=== PATIENT | male | born 1990 | race Caucasian/White ===

== ENCOUNTER 2020-02-01 09:35 | Outpatient (CLI) | payer BC, SELFPAY ==
[2020-02-02 13:07] LABS: SARS-CoV-2 RNA PCR Negative
== END 2020-02-01 09:36 | disposition home or self-care (01) ==
LOC: CHSLAB 09:40
PROVIDERS: PCP Internal Medicine; Visit Provider Internal Medicine
DX: Z20.828 Contact with and (suspected) exposure to other viral communicable diseases (principal)
CPT/HCPCS: 87635; C9803; U0003

== ENCOUNTER 2022-10-05 14:40 | Outpatient (CLI) | payer BC, SELFPAY ==
--- NOTE | ~2022-10-05 | XR_ITS ---
EXAM: XR_CERV2-3V_CR DATE: 10/05/2022 15:02 HISTORY: neck pain, right arm pain,DYSPHAGIA . COMPARISON: None available. FINDINGS: Craniocervical association and atlantoaxial joint are aligned. No prevertebral soft tissue swelling. Vertebral bodies are aligned. Mild reversal of the normal cervical lordosis, centered at C 4. Vertebral body heights are maintained. Moderate disc space narrowing at C3-4 with mild marginal os teophytosis. No significant facet sclerosis or hypertrophy. IMPRESSION: Mild-moderate degenerative disc disease at C3-4. Reviewed, dictated and finalized at location K.
[2022-10-05 14:55] LABS: Basophils Absolute Auto 0.04 K/mm3 (0.00-0.10); Basophils Percent Auto 0.6 % (0.0-1.0); Eosinophils Absolute Auto 0.06 K/mm3 (0.02-0.50); Eosinophils Percent Auto 0.9 % (1.0-6.0); Hematocrit 47.1 % (40.0-54.0); Hemoglobin 16.1 g/dL (14.0-18.0); Immature Granulocyte Absolute 0.01 K/mm3 (0.00-0.00); Immature Granulocyte Percent A 0.2 % (0.0-0.0); Lymphocytes Absolute Auto 1.69 K/mm3 (1.10-4.50); Lymphocytes Percent Auto 26.3 % (18.0-42.0); Mean Corpuscular HGB Conc 34.2 g/dL (32.0-36.0); Mean Corpuscular Hemoglobin 30.9 pg (27.0-31.0); Mean Corpuscular Volume 90.4 fL (78.0-102.0); Mean Platelet Volume 10.8 fl (8.7-11.0); Monocytes Absolute Auto 0.39 K/mm3 (0.10-0.90); Monocytes Percent Auto 6.1 % (2.0-11.0); Neutrophils Absolute Auto 4.2 K/mm3 (1.7-7.2); Neutrophils Percent Auto 65.9 % (50.0-70.0); Platelet Count Result 225 K/mm3 (150-420); Red Blood Count 5.21 M/mm3 (4.70-6.10); White Blood Count 6.4 K/mm3 (4.8-10.8)
[2022-10-05 15:28] LABS: Alanine Aminotransferase 33 U/L (16-63); Albumin Level 4.3 g/dL (3.4-5.0); Alkaline Phosphatase 96 U/L (46-116); Anion Gap 10 mmol/L (8-16); Aspartate Amino Transferase 16 U/L (15-37); Bilirubin,Total 0.5 mg/dL (0.00-1.00); Blood Urea Nitrogen 8 mg/dL (7-18); Calcium 9.1 mg/dL (8.5-10.1); Carbon Dioxide 29 mmol/L (21-32); Chloride 104 mmol/L (98-108); Estimated Glomerular Filt Rate > 60; Glucose 90 mg/dL (70-99); Osmolality Calculated 294 mOsm/kg (285-295); Potassium 4.5 mmol/L (3.5-5.1); Sodium 143 mmol/L (136-145); Total Protein 7.5 g/dL (6.4-8.2)
[2022-10-05 15:29] LABS: CRP < 0.5 mg/dL (0.0-0.9)
== END 2022-10-05 14:41 | disposition home or self-care (01) ==
LOC: CHSLAB 14:43
PROVIDERS: PCP Internal Medicine; Visit Provider Internal Medicine
DX: R13.10 Dysphagia, unspecified (principal); M54.2 Cervicalgia; M79.601 Pain in right arm; M50.31 Other cervical disc degeneration, high cervical region
CPT/HCPCS: 36415; 72040; 80053; 85025; 86140

== ENCOUNTER 2022-10-20 08:49 | Outpatient (CLI) | payer BC, SELFPAY ==
--- NOTE | ~2022-10-20 | XR_ITS ---
EXAMINATION: XR barium swallow DATE: 10/20/2022 10:00 INDICATION: Dysphagia, neck pain TECHNIQUE: The patient drank thick barium, gas-producing crystals, and thin barium. Fluoroscopy of th e hypopharynx and esophagus was performed. Fluoroscopy exposure time was 1.6 minutes. The DAP for thi s procedure was 11.754 Gycm2. COMPARISON: None. FINDINGS: There is a small area of anterior indentation of the cervical esophagus at the level of C5. Esophageal motility is normal. There is no hiatal hernia. There was no gastroesophageal reflux with provocative maneuvers. IMPRESSION: 1. Small area of anterior indentation of the cervical esophagus which could reflect an esophageal web . Endoscopy is recommended. Reviewed, dictated and finalized at location L. IMPRESSION: 1. Small area of anterior indentation of the cervical esophagus which could ref lect an esophageal web. Endoscopy is recommended.
== END 2022-10-20 08:50 | disposition home or self-care (01) ==
LOC: CHSIMG 08:51
PROVIDERS: PCP Internal Medicine; Visit Provider Internal Medicine
DX: R13.10 Dysphagia, unspecified (principal); M54.2 Cervicalgia; M79.601 Pain in right arm
CPT/HCPCS: 74220

== ENCOUNTER 2022-11-12 15:58 | Outpatient (RCR) | payer BC, SELFPAY ==
--- NOTE | 2022-11-13 07:37 | PTOPEVAL1 ---
Assessment and note entered by ANUPAM Fitzgerald PT Evaluation Information Assessment Status Evaluation Diagnosis R cervical radiculopathy Onset 11/03/22 Subjective Information Patient reports a history of R shoulder and arm pain for years since playing high school sports. In the last few months, the pain in his R UE has increased along with additional neck pain. 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 He notes pain and numbness down the R UE into the ring and pinky fingers that typically only occurs when throwing baseballs or positioning the neck in rotation/sidebending for some time. Patient reports neck pain as an aching/ stiff sensation that lasts throughout the day, especially with work where he primarily sits at a desk. He visited the doctor and recevied an x-ray showing cervical spine disc disease, but has not had an MRI. He has been treating the pain with stretching and going to the chiropractor but notes nothing fully resolves the pain. Reported Pain Level Pain Score 3,0: Self Report Assessment PT Clinical Summary Mr. Pantoja is a 32 y/o male who presents to skilled PT due to cervical radiculopathy. He presents with signs and symptoms indicative of a R cervical radiculopathy. He demonstrates limited cervical and R shoulder ROM, as well as impaired strength in the R UE. 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 Patient currently has 22% functional decline as assessed by the NDI. Appropriate to continue skilled therapy to address deficits in ROM, strength, posture, and function to allow for patient to improve tolerance to work activities, coaching activites, and other daily activities. Supervised by Antonio Fitzgerald DPT Plan of Care Interventions Electrical Stimulation,Hot Pack/Cold Pack,Manual Therapy,Mechanical Traction,Neuro Re-education, Patient/Caregiver Educati,Therapeutic Activities, Therapeutic Exercise PT Services Indicated Yes Treatment Frequency and 2x/week for 10 visits Duration These treatments will address the objective and functional deficits as defined above.
--- NOTE | 2022-11-13 07:38 | OPREHPOC ---
Outpatient Therapy Plan of Care This is a Multidisciplinary Plan of Care that may contain components documented by all disciplines (PT, OT, and ST.) PT Problem 1 PT Problem #1 Knowledge Deficit PT Goal 1 Goal 1. Patient to demonstrate independence with HEP to improve progress made in PT. Target Visit 5 PT Problem 2 PT Problem #2 Impaired Range of Motion PT Goal 1 Goal 1. Patient to increase R cervical lateral flexion AROM to 30 degrees or more to decrease pain with cervical movements. 2. Patient to improve R shoulder flexion and abduction AROM to 160 degrees or more each to improve patient's ability to reach objects on overhead shelf. Target Visit 10 PT Problem 3 PT Problem #3 Impaired Strength PT Goal 1 Goal 1. Patient to improve R shoulder and elbow strength to 5/5 overall to increase patient's ability to lift 20 pounds from floor to overhead shelf. Target Visit 10 PT Problem 4 PT Problem #4 Pain PT Goal 1 Goal 1. 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 2. 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 Target Visit 10 PT Problem 5 PT Problem #5 Impaired Functional Mobil PT Goal 1 Goal 1. Pt to improve NDI score to no more than 10% to improve patient's tolerance to sleeping and driving activities. Target Visit 10
--- NOTE | 2022-11-23 15:30 | PCPTNOTE ---
patient had to cancel skilled PT today due to a conflict with work. he is scheduled to return to skilled PT on 11/26/22.
--- NOTE | 2022-12-08 16:39 | OPREHPOC ---
Outpatient Therapy Plan of Care This is a Multidisciplinary Plan of Care that may contain components documented by all disciplines (PT, OT, and ST.) PT Problem 1 PT Problem #1 Knowledge Deficit PT Goal 1 Goal 1. Patient to demonstrate independence with HEP to improve progress made in PT. Target Visit 5 Progress Met PT Problem 2 PT Problem #2 Impaired Range of Motion PT Goal 1 Goal 1. Patient to increase R cervical lateral flexion AROM to 30 degrees or more to decrease pain with cervical movements. 2. Patient to improve R shoulder flexion and abduction AROM to 160 degrees or more each to improve patient's ability to reach objects on overhead shelf. Target Visit 10 Progress Not Met PT Goal 2 Progress Not Met PT Problem 3 PT Problem #3 Impaired Strength PT Goal 1 Goal 1. Patient to improve R shoulder and elbow strength to 5/5 overall to increase patient's ability to lift 20 pounds from floor to overhead shelf. Target Visit 10 Progress Not Met PT Problem 4 PT Problem #4 Pain PT Goal 1 Goal 1. 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 2. 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 Target Visit 10 Progress Not Met PT Problem 5 PT Problem #5 Impaired Functional Mobil PT Goal 1 Goal 1. Pt to improve NDI score to no more than 10% to improve patient's tolerance to sleeping and driving activities. Target Visit 10 Progress Not Met
--- NOTE | 2022-12-08 16:39 | PTOPPROGNS ---
Assessment and note entered by Bianca Cash DPT Evaluation Information Assessment Status Progress Diagnosis R cervical radiculopathy Onset 11/03/22 Subjective Information Patient reports minimal change since start of PT. He reports that if he uses his R arm he continues to have pain and heaviness in the hand. He reports he has a follow up with MD next week. Assessment PT Clinical Summary Patient has been seen for 7 visits of skilled PT with minimal progression towards goals made. Patient continues to have neck pain and stiffness with radiating symptoms down the R UE. Patient recommended to follow up with MD to discuss MRI. Patient has a follow up with MD scheduled for next week and will be on hold until follow up appointment. Plan of Care Interventions Electrical Stimulation,Hot Pack/Cold Pack,Manual Therapy,Mechanical Traction,Neuro Re-education, Patient/Caregiver Educati,Therapeutic Activities, Therapeutic Exercise PT Services Indicated Yes Treatment Frequency and hold until follow up with MD Duration These treatments will address the objective and functional deficits as defined above. The patient will be advanced safely and appropriately in order for the patient to progress towards his/her prior level of function. Additional exercises will be introduced and as well as a comprehensive home exercise program upon discharge, if needed, ?to ensure carryover of functional gains achieved in the clinic. This treatment plan has been reviewed and agreement upon by the patient.
== END 2022-12-08 23:59 | disposition home or self-care (01) ==
LOC: CHSPT 15:58
PROVIDERS: PCP Internal Medicine; Visit Provider Internal Medicine
DX: M54.12 Radiculopathy, cervical region (principal)
CPT/HCPCS: 97012; 97014; 97110; 97140; 97161; G0283

== ENCOUNTER 2022-11-24 04:21 | Day surgery (SDC) | payer BC, SELFPAY ==
[2022-11-13 12:41] VITALS: BMI 27.0
[2022-11-24 11:20] VITALS: BP 138/86; PULSE 63; RESP 16; TEMP 36.7; O2SAT 100
--- NOTE | 2022-11-24 11:21 | PM.HPGS ---
History of Present Illness History of Present Illness Consent: Risks, benefits, and alternatives have been discussed and questions answered. Patient agrees to proceed with procedure. Chief complaint: dysphagia Narrative: Juan Pantoja is a 32 year old male Presents for EGD. Patient states for several years he has intermittently had difficulty swallowing. He states the solid food will catch in the mid substernal portion of the chest. This occurs with larger pieces of food when this happens he is difficulty swallowing liquids. This has happened more frequently recently. Patient denies any bleeding or weight loss. 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 This was a very nonspecific finding. Patient's family history noncontributory. Patient does have vague indigestion. He has not been on any medications for this. Review of Systems Review of Systems: Review of systems noncontributory. [facility] Past Medical History Medical History Dysphagia Social History Social History (Updated 11/11/22 @ 08:37 by NICOLLE Leyva) Smoking status: Current some day smoker Tobacco type: cigars Second hand tobacco smoke exposure: No Alcohol intake: current Drinks per week: 5 Alcohol use details: couple drinks a week Substance use: never Substance use type: does not use Lack of Transportation: No Lack of Food: Never True Current Housing: I Have Housing Concerned About Future Housing: No Difficulty Paying Gas/Electric Bills: No Difficulty Paying for Meds: No Currently Unemployed: No Living arrangements: with family Spiritual care concerns: No Meds Home Medications and Allergies Home Medications Medication Instructions Recorded Confirmed Type No Home Medications 11/11/22 11/13/22 History Allergies Allergy/AdvReac Type Severity Reaction Status Date / Time No Known Allergies Allergy Verified 11/24/22 11:19 Vital Signs Vital Signs - 24 hr 11/24/22 11:20 Temperature 98.1 F Pulse Rate 63 Respiratory Rate 16 Blood Pressure 138/86 Pulse Oximetry 100 Oxygen Delivery Room Air Exam Narrative: Physical exam reveals patient to be alert. Vital signs stable. HEENT exam is unremarkable. Patient is anicteric. Lungs are clear to auscultation and percussion. Heart is without murmur or extra sounds. Abdomen bowel sounds are present soft nontender with no organomegaly. Digital external rectal exam deferred. Assessment and Plan Assessment and plan (1) Dysphagia: Code(s): R13.10 - Dysphagia, unspecified Status: Acute Assessment and Plan: Patient complains of food catching mid substernal portion the chest. Suggest distal esophageal narrowing. Finding on barium swallow is does not appear to correlate with symptoms. Plan for EGD to assess more thoroughly. He may benefit from esophageal dilatation. Further recommendations will be given after endoscopy.
[2022-11-24] MEDS: LACTATED RINGERS 1,000 ML 150 ML IV CONT (11:26)
--- NOTE | 2022-11-24 11:38 | P.PNAN_ITS ---
Anes - Initial Pre Proc Eval Procedure: Operation Date: 11/24/22 13:30 Proposed Procedures p Esophagogastroduodenoscopy - Brenton Norton MD Date/Time: 11/24/22 11:38 Surgeon: Brenton Norton MD Pre Op Diagnosis: dysphagia Patient Data Age: 32 Gender: M Height: 1.88 m Weight: 97.2 kg Last Vital Signs Temp 36.7 C 11/24/22 11:20 Pulse 63 11/24/22 11:20 Resp 16 11/24/22 11:20 BP 138/86 11/24/22 11:20 Pulse Ox 100 11/24/22 11:20 O2 Del Method Room Air 11/24/22 11:20 Allergies Allergy/AdvReac Type Severity Reaction Status Date / Time No Known Allergies Allergy Verified 11/24/22 11:19 Home Medications Medication Instructions Recorded Confirmed Type No Home Medications 11/11/22 11/13/22 History Patient hx anesthesia problems: none Family hx anesthesia problems: none Results Review: All pre-operative results and documents have been reviewed as part of the pre- operative evaluation. [facility] Past Medical History Medical History Dysphagia Social History Social History Smoking status: Current some day smoker Tobacco type: cigars Second hand tobacco smoke exposure: No Alcohol intake: current Drinks per week: 5 Alcohol use details: couple drinks a week Substance use: never Substance use type: does not use Lack of Transportation: No Lack of Food: Never True Current Housing: I Have Housing Concerned About Future Housing: No Difficulty Paying Gas/Electric Bills: No Difficulty Paying for Meds: No Currently Unemployed: No Living arrangements: with family Spiritual care concerns: No Anes - Eval Final PreProcedure Day of Procedure 11/24/22 11:38 Patient weight: overweight Heart: regular rate and rhythm Lungs: clear to auscultation Airway: Mallampati scale class 1 Neurological: alert and oriented Last oral intake: >/= 8 hours ASA classification: II Emergent: no Anesthetic plan: proceed Anesthesia type and monitoring: general GIVS and standard monitoring Results Review: All pre-operative results and documents have been reviewed as part of the pre- operative evaluation. Informed Consent: The patient's anesthetic plan and its attendant risks and benefits were discussed with the patient/family/POA. Questions were solicited and answers provided to the satisfaction of the patient/family/POA.
[2022-11-24 13:08] VITALS: BP 118/70; PULSE 72; RESP 18; O2SAT 96
[2022-11-24 13:18] VITALS: BP 133/73; PULSE 65; RESP 18; O2SAT 99
[2022-11-24 13:28] VITALS: BP 138/68; PULSE 56; RESP 18; O2SAT 99
== END 2022-11-24 13:34 | disposition home or self-care (01) ==
PROVIDERS: PCP Internal Medicine; Visit Provider Internal Medicine Gastroenterology
PROC: 0DJ08ZZ Inspection of Upper Intestinal Tract, Via Natural or Artificial Opening Endoscopic (ICD-10-PCS; CPT 43235; principal; 2022-11-24 13:30)
DX: K21.00 Gastro-esophageal reflux disease with esophagitis, without bleeding (principal); Q39.4 Esophageal web; F17.290 Nicotine dependence, other tobacco product, uncomplicated
CPT/HCPCS: 43235; 43450; J2704; J7120

== ENCOUNTER 2022-12-16 10:12 | Outpatient (CLI) | payer BC, SELFPAY ==
--- NOTE | ~2022-12-16 | XR_ITS ---
EXAM: XR shoulder RT min 2V DATE: 12/16/2022 10:51 HISTORY: Right Arm Pain,NKI . COMPARISON: None available. FINDINGS: Normal mineralization. No fracture. Mild widening of the AC joint. No lytic or blastic les ion. Joint spaces are maintained. No erosion or periosteal change. Soft tissues within normal limits. IMPRESSION: Mild apparent AC joint widening, may represent low-grade AC joint injury, correlate with point tender ness. Reviewed, dictated and finalized at location K. IMPRESSION: Mild apparent AC joint widening, may represent low-grade AC joint injury, corre late with point tenderness.
--- NOTE | ~2022-12-16 | XR_ITS ---
EXAMINATION: XR chest 2V Exam Date/Time: 12/16/2022 10:35 CDT HISTORY: Right Arm Pain,?THORACIC OUTLET SYNDROME Comparison: 07/02/2017 and 10/31/2013. RESULT: Lines, tubes, and devices: None. Lungs and pleura: Clear. Cardiomediastinal silhouette: Stable. Other: No acute osseous or upper abdominal finding. IMPRESSION: No acute cardiopulmonary process. Reviewed, dictated and finalized at location K.
== END 2022-12-16 10:13 | disposition home or self-care (01) ==
LOC: CHSIMG 10:14
PROVIDERS: PCP Internal Medicine; Visit Provider Internal Medicine
DX: M79.601 Pain in right arm (principal); G54.0 Brachial plexus disorders
CPT/HCPCS: 71046; 73030

== ENCOUNTER 2023-01-12 13:27 | Outpatient (CLI) | payer BC, SELFPAY ==
--- NOTE | ~2023-01-12 | MR_ITS ---
MRI of the right shoulder Technique: Axial proton-density fat-sat images, coronal proton density fat-sat and T2 fat-sat images, and sagittal T1-weighted and T2 fat-sat images were acquired. Clinical History: Radiculopathy Findings: There is minimal AC joint degenerative change. Coracoclavicular, coracoacromial, and coraco humeral ligaments are intact. Supraspinatus and infraspinatus tendons are intact, without partial or full-thickness tear. Subscapul maria elena tendon is intact. Tendon of the long head of the biceps is intact. No labral tear identified. Inferior glenohumeral ligament is intact. No effusion or degenerative change of the glenohumeral join t. No fluid distention of the subacromial/subdeltoid bursa. No muscle atrophy or edema. Impression: No significant abnormality identified. Reviewed, dictated and finalized at [facility]. Impression: No significant abnormality identified.
--- NOTE | ~2023-01-12 | MR_ITS ---
MRI of the cervical spine Clinical History: Pain Technique: Axial T2-weighted and gradient images, and sagittal T1-weighted, T2-weighted, and STIR kyung ges were acquired. Findings: There is no fracture or subluxation of the cervical spine. Vertebral bodies maintain normal height and alignment. No suspicious bone marrow signal abnormality seen. At C2-C3, there is no disc bulge or herniation. No spinal canal stenosis, cord compression, or neural foraminal narrowing. At C3-C4, there is small disc osteophyte complex, with degenerative disc narrowing. No eleazar spinal c anal stenosis or cord compression. No definite neural foraminal narrowing. At C4-C5, there is disc osteophyte complex, most prominent in the right paracentral to right foramina l region. There is right neural foraminal narrowing. Left neural foramen preserved. No central canal stenosis or cord compression. At C5-C6, there is mild disc osteophyte complex. There is left neural foraminal narrowing. Right neur al foramen preserved. No central canal stenosis or cord compression. At C6-C7, there is no disc bulge or herniation. No spinal canal stenosis, cord compression, or neural foraminal narrowing. No abnormal signal seen in the spinal cord. Paravertebral soft tissues are unremarkable. Impression: Mild degenerative spondylosis, as above, worst at C4-C5 and C5-C6. Reviewed, dictated and finalized at [facility]. Impression: Mild degenerative spondylosis, as above, worst at C4-C5 and C5-C6.
== END 2023-01-12 13:28 ==
PROVIDERS: PCP Internal Medicine; Visit Provider Internal Medicine
DX: M79.601 Pain in right arm (principal); M47.892 Other spondylosis, cervical region
CPT/HCPCS: 72141; 73221

== ENCOUNTER 2024-09-22 19:58 | Emergency (ER) | payer BC, SELFPAY ==
--- OUTSIDE RECORDS SUMMARY | 2024-09-22 20:01 | XMS_ITS | Referral Summary ---
Author Organization [facility] Address [address] [place] [id number] Care Team Providers Care Matrix Worker Name Role Phone Sammy Sung MD Primary Care Provider [phone] Medications No known medications Active Problems No known active problems Social History Tobacco Use Types Packs/Day Years Used Date Smoking Tobacco: Never Assessed Sex and Gender Information Value Date Recorded Sex Assigned at Not on file Legal Sex Male 12:49 PM CDT Gender Identity Not on file Sexual Orientation Not on file Plan of Treatment Not on file Insurance [employer] OOS [address] [id number] Care Teams Matrix Worker Relationship Specialty Start Date End Date Sammy Sung MD PCP - General 9/20/17
--- OUTSIDE RECORDS SUMMARY | 2024-09-22 20:01 | XMS_ITS | Clinical Summary ---
Author Organization [facility] Address [address] [place] [id number] Care Team Providers Care Program Manager Environmental Planning Name Role Phone Sammy Sung MD Primary Care Provider [phone] Medications No known medications Active Problems No known active problems Surgical History Surgery Date Site/Laterality Comments INGUINAL HERNIA REPAIR Inguinal Hernia Repair - (Added by TW Conv) Social History Tobacco Use Types Packs/Day Years Used Date Smoking Tobacco: Never Assessed Sex and Gender Information Value Date Recorded Sex Assigned at Not on file Legal Sex Male 12:49 PM CDT Gender Identity Not on file Sexual Orientation Not on file Obstetrics History Plan of Treatment Not on file Insurance [employer] OOS Care Teams Program Manager Environmental Planning Relationship Specialty Start Date End Date Sammy Sung MD [facility] - General 12/30/16
--- OUTSIDE RECORDS SUMMARY | 2024-09-22 20:01 | XMS_ITS | Clinical Summary ---
Author Organization [facility] Address [address] [place] [place] [address] Care Team Providers Care Cinder Block Mason Name Role Phone Unavailable Primary Care Provider Unavailabl e Source Comments [facility],non-owned Affiliates and Associated Physician Practices is amultiple site organization consisting of ambulatory clinics and hospital sitesin [place], [place], [place] and [place]. This disclosure is being madepursuant to the Care Everywhere program and may not contain all information available regarding this patient. Last updated 17.[facility] Social History Tobacco Use Types Packs/Day Years Used Date Smoking Tobacco: Never Assessed Sex and Gender Information Value Date Recorded Sex Assigned at Not on file Legal Sex Male 5:37 AM AESTHETICIAN Gender Identity Not on file Sexual Orientation Not on file Plan of Treatment Health Maintenance Due Date Last Done Comments HIV SCREENING 11/04/2003 HEPATITIS C SCREENING 10/30/2006 DTAP/TDAP/TD VACCINES (1 - Tdap) 11/04/2007 HEPATITIS B VACCINE (1 of 3 - 19+ 3-dose series) 11/04/2007 COVID-19 VACCINE (1 - 2023-2 5 season) 2023 DEPRESSION SCREENING 04/12/2024 INFLUENZA VACCINE (Season Ended) 2024 ZOSTER VACCINE (1 of 2) 2038 HIB VACCINE Aged Out No longer eligi ble based on patient's age to complete this topic HPV VACCINE Aged Out No longer eligi ble based on patient's age to complete this topic MENINGOCOCCAL (Group B) VACC INE SHARED DECISION-MAKING Aged Out No longer eligibl e based on patient's age to complete this topic MENINGOCOCCAL GROUPS A/C/Y/W VACCINE Aged Out No longer eligible b ased on patient's age to complete this topic PNEUMOCOCCAL VACCINE Aged Out No long er eligible based on patient's age to complete this topic
--- NOTE | 2024-09-22 20:06 | ED_ITS ---
HPI - Skin/Abscess/Foreign Bdy General Chief complaint: Wound/Laceration Stated complaint: FISH HOOK IN HAND Time Seen by Provider: 09/22/24 20:04 Source: patient Mode of arrival: ambulatory Limitations: no limitations History of Present Illness HPI narrative: 33-year-old male with no significant past medical history presents to the ED with a fishhook stuck in his right hypothenar eminence. Not up-to-date on tetanus. complaint: foreign body ( [place]) Onset (ago): hour(s) ( 1 hour) Location: R hand Relieving factors: none Exacerbating factors: none Associated symptoms: denies other symptoms Related Data Allergies Allergy/AdvReac Type Severity Reaction Status Date / Time No Known Allergies Allergy Verified 11/24/22 11:19 Review of Systems Review of Systems: All systems reviewed & are unremarkable except as noted in HPI and below PMFSH Past Medical History Medical History Dysphagia Social History Social History Smoking status: Current some day smoker Tobacco type: cigars Second hand tobacco smoke exposure: No Alcohol intake: current Drinks per week: 5 Alcohol use details: couple drinks a week Substance use: never Substance use type: does not use Lack of Transportation: No Lack of Food: Never True Current Housing: I Have Housing Concerned About Future Housing: No Difficulty Paying Gas/Electric Bills: No Difficulty Paying for Meds: No Currently Unemployed: No Living arrangements: with family Spiritual care concerns: No Exam Narrative: vitals are stable Const: General: no acute distress Orientation/consciousness: patient oriented x3 Limitations: no limitations HENMT: Head: normal to inspection Ears: external ears normal Face/Nose/Sinus: Normal external nose present Face and sinus: normal facial exam Mouth: Yes Normal oral and palatal mucosa present Throat: posterior oropharynx normal Eyes: Conjunctivae: conjunctivae normal Pupils: Equal, round and reactive pupils present EOM: EOMs intact bilaterally Direct Ophthalmoscopy: no photophobia Neck: Neck: normal visual inspection, no lymphadenopathy and no meningeal signs Chest: Chest palpation & inspection: normal inspection of the chest Resp: Effort & Inspection: normal respiratory effort Auscultation: clear to auscultation bilaterally Cardio: Rate: regular rate Rhythm: regular rhythm GI: GI Palp: Yes Soft to palpation Auscultation: normal bowel sounds : General: Yes no CVA tenderness Back/Spine/Pelvis: Back: no CVA tenderness Skin: General skin exam: normal color Other: fishhook in the right hypothenar eminence Neuro: General: patient oriented x3, moves all extremities, no meningeal signs, no focal motor deficits and CN's II-XI intact bilaterally Cranial nerves: Yes Nystagmus not present Speech: normal speech Gait exam (Neuro): Normal gait present Extrem: General: normal to inspection and no clubbing, cyanosis or edema Psych: Mental Status: mental status grossly normal Affect: normal affect Course Course Emergency Course: fishhook in right hypothenar eminence- [place] removed Vital Signs Vital signs: Vital Signs Temperature 36.8 C 09/22/24 20:09 Pulse Rate 77 09/22/24 20:09 Respiratory Rate 14 09/22/24 20:09 Blood Pressure 160/106 H 09/22/24 20:09 Pulse Oximetry 99 09/22/24 20:09 Oxygen Delivery Room Air 09/22/24 20:09 Temperature 36.8 C 09/22/24 20:09 Pulse Rate 77 09/22/24 20:09 Respiratory Rate 14 09/22/24 20:09 Blood Pressure 160/106 H 09/22/24 20:09 Pulse Oximetry 99 09/22/24 20:09 Oxygen Delivery Room Air 09/22/24 20:09 Procedures Other Procedure Procedure 1: Other Procedure: fishhook removal from right hypothenar eminence wound cleansed with iodine solution 1% lidocaine infiltrated in the hypothenar space. Amount injected 2 mL using pliers the fishhook was pushed through the skin and cut with pliers MDM - Skin/Abscess/Foreign Bdy MDM Narrative Medical decision making narrative: [place] right hand Differential Diagnosis Differential diagnosis: Likely abscess of skin or subcutaneous tissue Discharge Plan Discharge Clinical Impression: [place] injury to finger Qualifiers: Encounter type: initial encounter Laterality: right Qualified Code(s): S69.91XA - Unspecified injury of right wrist, hand and finger(s), initial encounter Patient Disposition: Home Condition: Stable Instructions: Antibiotic Form, Soft Tissue Foreign Body (ED) Patient Language: Latvian Prescriptions: No Action omeprazole 20 mg capsule,delayed release(DR/EC) 20 mg PO .QAM Qty: 30 12RF Follow-up/Referrals: Sammy Sung MD [Primary Care Provider] - Time of Disposition: 20:20
[2024-09-22 20:09] VITALS: BP 160/106; PULSE 77; RESP 14; TEMP 36.8; O2SAT 99
[2024-09-22] MEDS: LIDOCAINE 1% LOCAL INJ 10 ML VIAL 2 ML INFILTRATE (20:10)
[2024-09-22] MEDS: TETANUS,DIPHTHERIA,AC PERTUSSIS ADULT 0.5 ML (ADACEL) IM (20:19)
[2024-09-22 20:31] VITALS: BP 140/96; PULSE 85; RESP 18; O2SAT 99
== END 2024-09-22 20:31 | disposition home or self-care (01) ==
PROVIDERS: Emergency Provider Internal Medicine Critical Care Medicine; PCP Internal Medicine
DX: S61.441A Puncture wound with foreign body of right hand, initial encounter (principal); Z23 Encounter for immunization; W45.8XXA Other foreign body or object entering through skin, initial encounter
CPT/HCPCS: 90471; 90715; 99282; J2003